=== PATIENT | female | born 1935 | race Caucasian/White ===

== ENCOUNTER 2017-07-19 14:01 | Observation (INO) | payer MEDICARE, OTHER ==
[2017-07-19] MEDS ORDERED: SODIUM CHLORIDE 0.9% 1000ML 1,000 ML IVS ONE (14:29)
[2017-07-19] MEDS ORDERED: DEXTROSE 50% 25 GM/50 ML SYG IV ONE ×2 (15:02→15:03)
--- NOTE | 2017-07-19 15:07 | RAD ---
EXAM DESCRIPTION: Chest,1 View CLINICAL HISTORY: 82 years Female, dizziness COMPARISON: None. IMPRESSION: The heart is enlarged, with borderline central pulmonary vascular congestion. Mild perihilar interstitial prominence. This may reflect atelectasis, scarring/fibrosis, mild interstitial edema, versus an atypical infectious/inflammatory process. There is no confluent airspace consolidation, large pleural effusion, or pneumothorax. No acute osseous abnormality. Electronically signed by: Jason Ordoñez MD 07/19/2017 3:06 PM CDT
--- NOTE | 2017-07-19 16:23 | ED.PDOC ---
History of Present Illness - General Chief Complaint: Neuro Symptoms/Deficits Stated Complaint: cardiac Time Seen by Provider: 07/19/17 14:28 Source: patient, family Exam Limitations: no limitations - History of Present Illness Initial Comments: the patient is an 82-year-old female presenting to the emergency room with her daughter secondary to increased fatigue and drowsiness and generalized weakness today. Daughter reports that also some yesterday the patient was a little less active than normal. No chest pains. No nausea or vomiting. No diarrhea. No real shortness of breath. Daughter reports that she did get a little bit confused and dizzy and mildly diaphoretic earlier today. Of significant note, the patient's glucometer has not been working for the last 3 days and the patient is an insulin-dependent diabetic. She does have mild dementia at baseline. the patient does have depression, anxiety and some mild bladder spasms for which she was started on an antidepressant and a antispasmodic about a month ago. Timing/Duration: unsure Severity: moderate Improving Factors: nothing Worsening Factors: nothing Associated Symptoms: denies symptoms Allergies/Adverse Reactions: Allergies Penicillins Allergy (Verified 07/19/17 14:47) Other Causes itching Sulfa Antibiotics Allergy (Verified 07/19/17 14:47) Other Causes itching Review of Systems - Review of Systems Constitutional: States: diaphoresis, malaise, weakness EENTM: States: no symptoms reported Respiratory: States: no symptoms reported Cardiology: States: no symptoms reported Gastrointestinal/Abdominal: States: nausea Genitourinary: States: no symptoms reported Musculoskeletal: States: no symptoms reported Skin: States: no symptoms reported Neurological: States: other - mild dizziness that is episodic Endocrine: States: excessive sweating All other Systems: No Change from Baseline Past Medical History (General) - Patient Medical History Hx Dementia: Yes Hx Congestive Heart Failure: No Hx Thyroid Disease: Yes Hx Diabetes: Yes - Diabetic retinopathy - Social History Hx Tobacco Use: No Family Medical History - Family History Mother Family History: No Known Living Status: Physical Exam - Physical Exam General Appearance: Alert, Comfortable, No apparent distress Eye Exam: bilateral normal Ears, Nose, Throat: hearing grossly normal, normal ENT inspection, normal pharynx Neck: full range of motion, supple, normal inspection Respiratory: lungs clear, normal breath sounds, no respiratory distress, no accessory muscle use Cardiovascular/Chest: normal peripheral pulses, no edema, other - regular rate Peripheral Pulses: radial,right: 2+, radial,left: 2+, dorsalis pedis,right: 2+, dorsalis pedis,left: 2+ Gastrointestinal/Abdominal: non tender, soft Rectal Exam: deferred Back Exam: normal inspection, no CVA tenderness Extremity: normal range of motion, non-tender, normal inspection, no pedal edema , normal capillary refill Neurologic: news reporter II-XII nml as tested, alert, normal mood/affect - the patient's affect is flat. I'm unsure what hernormal is. She does have some dementia but is able to answer questionsabout how she is feeling quite well. She knows her relatives. She knows sooome of her medical history. She also knows why she is here. Skin Exam: normal color Comments: Vital Signs - 24 hr 07/19/17 07/19/17 14:19 15:11 Temperature 98.2 F Pulse Rate [ 62 60 Right Radial] Respiratory 20 20 Rate Blood Pressure 144/63 169/70 [Right Arm] O2 Sat by Pulse 98 96 Oximetry Progress - Progress Progress: 07/19/17 16:25 the patient's 82-year-old female presenting to the emergency room secondary to hypoglycemia. The patient has received an amp of D50. Even her medications and her limitations with her dementia, the patient will be admitted for further monitoring of her blood sugars over the next 24 hours. A urinalysis on this patient is still pending to help rule out a source of infection. No glucagon has been given to this time. Her last blood sugar was 152. Admit for observation for hypoglycemia in an elderly patient. - Results/Orders Results/Orders: Laboratory Tests 07/19/17 07/19/17 07/19/17 14:25 14:39 14:39 WBC 6.8 RBC 4.01 L Hgb 12.6 Hct 35.9 L MCV 89.5 MCH 31.4 H MCHC 35.2 RDW 13.2 Plt Count 179 MPV 9.5 Absolute Neuts (auto) 5.20 Absolute Lymphs (auto) 0.90 L Absolute Monos (auto) 0.60 Absolute Eos (auto) 0.00 Absolute Basos (auto) 0.00 Neutrophils % 77.0 Lymphocytes % 13.1 L Monocytes % 8.5 Eosinophils % 0.7 L Basophils % 0.7 Sodium 141 Potassium 3.8 Chloride 108 Carbon Dioxide 26 Anion Gap 10.8 L BUN 16 Creatinine 0.71 BUN/Creatinine Ratio 22.5 H POC Glucose 47 L Random Glucose 53 L Serum Osmolality 279.9 Calcium 9.4 Magnesium 1.7 L Total Bilirubin 0.5 AST 21 ALT 16 Alkaline Phosphatase 80 Creatine Kinase 78 CK-MB (CK-2) 3.2 CK-MB (CK-2) % Not Reportable Troponin I 0.02 B-Natriuretic Peptide 129.0 H Serum Total Protein 7.3 Albumin 4.0 Globulin 3.3 Albumin/Globulin Ratio 1.2 07/19/17 07/19/17 15:02 15:59 WBC RBC Hgb Hct MCV MCH MCHC RDW Plt Count MPV Absolute Neuts (auto) Absolute Lymphs (auto) Absolute Monos (auto) Absolute Eos (auto) Absolute Basos (auto) Neutrophils % Lymphocytes % Monocytes % Eosinophils % Basophils % Sodium Potassium Chloride Carbon Dioxide Anion Gap BUN Creatinine BUN/Creatinine Ratio POC Glucose 49 L 152 H D Random Glucose Serum Osmolality Calcium Magnesium Total Bilirubin AST ALT Alkaline Phosphatase Creatine Kinase CK-MB (CK-2) CK-MB (CK-2) % Troponin I B-Natriuretic Peptide Serum Total Protein Albumin Globulin Albumin/Globulin Ratio urinalysis is still pending at this time. Chest x-ray shows mild cardiomegaly those this is a single view. There is also likely chronic interstitial changes present. No definitive pneumonia. No pneumothorax. No pulmonary edema. Departure - Departure Clinical Impression: Hypoglycemia, Hypoglycemic reaction Disposition: Admit Patient Decision To Admit - Decistion To Admit Decision to Admit Reason: Medical Nature Decision to Admit Date: 07/19/17 Decision to Admit Time: 16:27
--- NOTE | 2017-07-19 17:20 | HP ---
SUPERVISING PHYSICIAN: Cristhian Cabrera M.D. CHIEF COMPLAINT: Weakness and lethargy. HISTORY OF PRESENT ILLNESS: This is an 82 year-old female patient who has recently moved to [place] from the [place], [place] area. She lives with her daughter. They had gone out to several stores in town earlier today. She felt very weak. She initially thought it was the heat. After they went back home she went to lie down and she had a very difficult time getting up. She felt like she was "out of it." Her daughter brought her to the Emergency Room. In the Emergency Room, her blood sugars were in the low 40s. She received some D50. A subsequent blood sugar went up but then it again went down into the 40s again and she received some more D50. There was a question of whether her glucometer was working at home or that she just had not been eating well over the last few days or if she had gotten overheated. She was afebrile. Her initial heart rate was 58 to 60 and is now 85. Her blood pressure was 144/63 with a respiratory rate of 20 and O2 sat of 98. WBCs were 6.8 with hemoglobin 12.6, hematocrit 35.9, platelets 179. Sodium 141, potassium 3.8, chloride 108, carbon dioxide 26, BUN 16, creatinine 0.71. Serum osmolality 279.9, calcium 9.4 , magnesium 1.7. BNP was 129. Cardiac enzymes were negative. Liver functions were within normal limits. Urinalysis was basically within normal limits. Chest x-ray showed the heart is enlarged with borderline central pulmonary vascular congestion. I was called for admission. PAST MEDICAL HISTORY: 1. Dementia. 2. Hypertension. 3. Diabetes mellitus type 2. 4. Diabetic retinopathy. 5. Hypothyroidism. 6. Hypertension. PAST SURGICAL HISTORY: OUTPATIENT MEDICATIONS: Per the EMR and awaiting verification. ALLERGIES: PENICILLIN AND SULFA. SOCIAL HISTORY: She recently moved to [place] from the [place], [place] area. She lives with her daughter. She denies any tobacco use. She rarely has an alcoholic beverage. There is no history of any illegal substance abuse. REVIEW OF SYSTEMS: Positive for weakness. Negative for fever or weight changes. HEENT: Negative for sinus symptoms, ear pain, vision changes or sore throat. RESPIRATORY: Negative for coughing, wheezing or shortness of breath. CARDIOLOGY: Negative for chest pain, palpitations or tachycardia. GASTROINTESTINAL: Positive for mild nausea. Negative for abdominal pain, vomiting, diarrhea or constipation. GENITOURINARY: Negative for hematuria, dysuria or polyuria. SKIN: Negative for lesions or rashes. MUSCULOSKELETAL: Negative for back pain, arthralgias or myalgias. NEUROLOGIC: Positive for dizziness and weakness. Negative for headaches or seizures. PHYSICAL EXAMINATION: VITAL SIGNS: She is afebrile, heart rate 59, blood pressure 178/69, respiratory rate 20, O2 sat 98%. GENERAL: This is an 82 year-old female patient who is lying in her hospital bed. She is in no acute distress. HEENT: Normocephalic and atraumatic. Pupils are equal and reactive. Oropharynx is clear. NECK: Supple without mass. RESPIRATORY: Essentially clear to auscultation bilaterally. CHEST: There is equal rise and fall of the chest with inspiration and expiration. CARDIOVASCULAR: Regular rate and rhythm. GASTROINTESTINAL: Abdomen is soft, nondistended, non-tender. Bowel sounds are positive. EXTREMITIES: No cyanosis, clubbing or edema. NEUROLOGIC: She is awake, alert and oriented times three. LABORATORY: Labs and films are as per the history of present illness. ASSESSMENT: 1. Hypoglycemia. 2. Diabetes mellitus type 2. 3. Hypertension. 4. Diabetic retinopathy. 5. Hypothyroidism. PLAN: We will place the patient in Observation. We will monitor her blood sugars closely. I will restart her home medications except for her diabetic medications. Will do several blood sugar checks during the night to make sure her blood sugars do not drop. Tomorrow we will reintroduce her diabetic medications and evaluate if we need to make adjustments on those. I will schedule some routine lab for in the morning. She will need to get a new meter or have her meter tested for accuracy. We will need to make sure she has a primary care physician for followup. We will continue to monitor her closely and follow as needed. Dr. Cabrera is the collaborating physician available for consultation. #[id number] [facility]liana
[2017-07-19] MEDS ORDERED: SODIUM CHLORIDE 0.9% (FLUSH) 10 ML SYG IV PRN (17:39)
[2017-07-19] MEDS ORDERED: ACETAMINOPHEN 325 MG TAB PO PRN (17:41)
[2017-07-19] MEDS ORDERED: GLUCAGON INJ 1 MG VIAL SUBCU PRN (17:42)
[2017-07-19] MEDS ORDERED: DEXTROSE 50% 25 GM/50 ML SYG IV PRN (17:42)
[2017-07-19] MEDS ORDERED: PANTOPRAZOLE SODIUM IV 40 MG VIAL IV SCH (18:00)
[2017-07-19] MEDS ORDERED: IV SET AND CAP CHANGE INJ INJ SCH (18:00)
[2017-07-19] MEDS ORDERED: traZODone HCL 100 MG TAB PO ONE (21:01)
[2017-07-19] MEDS: SODIUM CHLORIDE 0.9% (FLUSH) 10 ML SYG IV SCH (21:04)
[2017-07-19] MEDS: traZODone HCL 50 MG TAB PO SCH (21:05)
[2017-07-19] MEDS: INSULIN LISPRO 100 UNITS/ML PEN SUBCU SCH (21:09)
[2017-07-20] MEDS: INSULIN LISPRO 100 UNITS/ML PEN SUBCU SCH ×4 (08:08→20:52)
[2017-07-20] MEDS ORDERED: NON-FORMULARY MEDICATION 1 EA MIS (Levothyroxine Sodium [Synthroid] 125 MCG) PO SCH (09:00)
[2017-07-20] MEDS ORDERED: LOSARTAN POTASSIUM 25 MG TAB PO SCH (09:00)
[2017-07-20] MEDS: LEVOTHYROXINE SODIUM 0.025 MG TAB PO SCH (09:16)
[2017-07-20] MEDS: TOLTERODINE TARTRATE ER 4 MG CAP PO SCH (09:16)
[2017-07-20] MEDS: LEVOTHYROXINE SODIUM 0.1 MG TAB PO SCH (09:16)
[2017-07-20] MEDS: LATANOPROST 0.005% OPTH SOL 2.5 ML BTTL BOTH_EYES SCH (09:16)
[2017-07-20] MEDS: SODIUM CHLORIDE 0.9% (FLUSH) 10 ML SYG IV SCH ×2 (09:17→20:51)
--- NOTE | 2017-07-20 10:42 | PN ---
SUPERVISING PHYSICIAN: Cristhian Cabrera MD DATE: 07/20/17 SUBJECTIVE: The patient is sitting up in a chair in her room. She continues complaints of weakness and fatigue, but feels better than on admission yesterday. The nurses reported her heart rate was in the 40s and 50s and she denies knowing about this in the past. OBJECTIVE: VITAL SIGNS: Afebrile. Heart rate has dropped as low as 48. It is now 64. Earlier, it was 56. Blood pressure 132/79. Respiratory rate 16. O2 saturation 91% on room air. RESPIRATORY: Essentially clear to auscultation bilaterally. CARDIAC: Bradycardic to regular rate and regular rhythm. GASTROINTESTINAL: Abdomen is soft, nondistended, nontender. Bowel sounds are positive. EXTREMITIES: No cyanosis, clubbing or edema. NEUROLOGIC: Awake, alert and oriented times three. LABORATORY: WBCs 5.3, hemoglobin 12.2, hematocrit 35.6. Sodium 139, potassium 3.7, chloride 107, carbon dioxide 25, BUN 15, creatinine 0.77. Blood sugars have run between 139 and 179. Calcium 8.8, magnesium still pending. All other labs and films have been reviewed via the EMR. ASSESSMENT: 1. Hypoglycemic event with blood sugars in the 40s. 2. Weakness and fatigue with reported blood sugars in the 40s in the Emergency Room and later heart rate reported in the 40s and 50s. 2. Diabetes mellitus, type 2, on 70/30 insulin as well as metformin. 3. Bradycardia, may have contributed to the weakness and fatigue. 4. Hypertension. 5. Diabetic retinopathy. 6. Hypothyroidism. PLAN: We will continue to monitor the patient closely. She may need to be changed to a full admission, but we will reevaluate.. At this point, I believe that a lot of her fatigue and low blood sugars were due to her 70/30. She takes quite a large dose. I have discontinued that and started her on Levemir 10 units at night. I explained to the patient that she may be better controlled with Lantus. She is having a difficult time acclimating to a new humidity and heat. I have restarted her metformin. Will also monitor her heart rate overnight. She only takes an ARB for her blood pressure. Her fatigue and lethargy may be due to bradycardic events and it may be beneficial for her to be discharged on a Holter monitor until she can followup with her primary care physician. I have held on labs for in the morning as those are fairly stable. We will closely monitor her heart rate over the next 24 hours as well as her blood sugars. We will continue to monitor the patient closely and follow as needed. Dr. Cabrera is the collaborating physician and available for consultation. #[id number] MTDD
[2017-07-20] MEDS: PANTOPRAZOLE SODIUM TAB 40 MG PO SCH (16:47)
[2017-07-20] MEDS ORDERED: MAGNESIUM SULFATE PREMIX 2GM 2 GM in PREMIX BAG 1 BAG IVPB ONE (17:46)
[2017-07-20] MEDS ORDERED: MAGNESIUM SULFATE PREMIX 2GM 50 ML IVPB ONE (17:53)
[2017-07-20] MEDS: LOSARTAN POTASSIUM 25 MG TAB PO SCH (20:50)
[2017-07-20] MEDS: traZODone HCL 50 MG TAB PO SCH (20:51)
[2017-07-20] MEDS ORDERED: INSULIN DETEMIR 100 UNITS/ML PEN SUBCU SCH (21:00)
[2017-07-20] MEDS ORDERED: ATORVASTATIN 20 MG TAB PO SCH (21:00)
[2017-07-20] MEDS ORDERED: cloNIDine HCL 0.1 MG TAB PO ONE (23:27)
[2017-07-21] MEDS: PANTOPRAZOLE SODIUM TAB 40 MG PO SCH (06:21)
[2017-07-21] MEDS: LEVOTHYROXINE SODIUM 0.025 MG TAB PO SCH (06:21)
[2017-07-21] MEDS: LEVOTHYROXINE SODIUM 0.1 MG TAB PO SCH (06:21)
[2017-07-21] MEDS ORDERED: HALOPERIDOL LACTATE INJ 5 MG/ML VIAL IM ONE (06:41)
[2017-07-21] MEDS: INSULIN LISPRO 100 UNITS/ML PEN SUBCU SCH ×3 (07:25→16:20)
[2017-07-21] MEDS ORDERED: metFORMIN XR 500 MG TAB.ER.24 PO SCH (07:30)
[2017-07-21] MEDS: TOLTERODINE TARTRATE ER 4 MG CAP PO SCH (09:16)
[2017-07-21] MEDS: LOSARTAN POTASSIUM 25 MG TAB PO SCH (09:16)
[2017-07-21] MEDS: LATANOPROST 0.005% OPTH SOL 2.5 ML BTTL BOTH_EYES SCH (09:17)
[2017-07-21] MEDS: SODIUM CHLORIDE 0.9% (FLUSH) 10 ML SYG IV SCH (09:18)
[2017-07-21 10:06] VITALS: O2SAT 97
[2017-07-21] MEDS ORDERED: INSULIN DETEMIR 100 UNITS/ML PEN SUBCU ONE (10:07)
[2017-07-21] MEDS ORDERED: CITALOPRAM HBR 20 MG TAB PO SCH (11:00)
[2017-07-21] MEDS ORDERED: NYSTATIN POWDER 15GM BTTL TOP PRN (13:03)
[2017-07-21 14:48] VITALS: BP 124/70; TEMP 97.5
[2017-07-22] MEDS ORDERED: MAGNESIUM OXIDE 400 MG TAB PO SCH (09:00)
--- NOTE | 2017-07-22 10:06 | DS ---
SUPERVISING PHYSICIAN: Cristhian Cabrera MD DISCHARGE DIAGNOSES: 1. Hypoglycemia with acute hypoglycemic event with blood sugars in the 40s secondary to poor medical compliance with diabetic medication regimen. 2. Weakness and fatigue likely secondary to poorly controlled blood sugars with questionable bradycardiac even with heart rate in the reported to be in the 40s and 50s.requiring further outpatient assessment. 3. Diabetes mellitus, type 2, on 70/30 insulin as well as metformin with poorly controlled blood sugars with decreased mental capacity to manage blood sugars. 4. Bradycardia, possibly contributing to weakness and fatigue. 5. Hypertension. 6. Diabetic retinopathy. 7. Hypothyroidism. REASON FOR HOSPITALIZATION: Ms. Florian is an 82 year-old female patient who recently moved from [place], [place] to [place]. She currently lives with her daughter and had gone to several stores in town on the date of admission, 07/19/17. She noted she was feeling very weak. She initially thought it was the heat, went back home and laid down but then had a very difficult time getting up. She felt like she was "out of it." Her daughter at that time brought her to the Emergency Room for evaluation. In the Emergency Room, her blood sugars showed she was hyperglycemic with a blood sugar in the 40s. At that time she received some D50 with improvement of her blood sugar initially with rebound back into the 40 and she received an additional amp of D50. The question was whether her glucometer was at home was working or she just had not been eating well over the last several days and continued to take her normal insulin regimen of 70/30. Chest x-ray showed she had enlarged heart with borderline central pulmonary vascular congestion. Labs were completed and the patient was admitted for hyperglycemia and further treatment and evaluation. LABORATORY: White count on admission was 6,800, prior to discharge on 07/20/ was 5,300. Hemoglobin and hematocrit were stable at 12.2 and 35.6 respectively. Platelet count 157,000. Differential showed to be without a left shift. Chemistries on admission showed electrolytes within normal limits with potassium 3.8, BUN 16, creatinine 0.71. Initially blood sugar in the Emergency Room was 47. After an amp of D50 it went up to 53 and back down to 49 , then an additional amp of D5 was given and it went back up to 152. Since admission it ranged between 142 and 233. Magnesium was slightly low at 1.7. Liver functions all showed to be within normal limits. She just had a slightly elevated BNP of 129. Cardiac enzymes showed to be within normal limits. Urinalysis showed 100 glucose, otherwise was within normal limits. RADIOLOGY: She had a chest x-ray in the Emergency Department prior to admission and per radiology interpretation there was noted the heart was enlarged with borderline essential pulmonary vascular congestion with mild pulmonary interstitial prominence, may reflect atelectasis scarring versus atypical infectious/inflammatory response, although there is no confluent airspace consolidations, no large pleural effusion or pneumothorax. HOSPITAL COURSE: Ms. Florian was admitted on 07/19 as noted above for hyperglycemia and question of bradycardia. She was started on sliding scale while in the hospital and Levemir and showing good response to the current regiment. She did have an episode of confusion late in the afternoon on the which was felt to be a sundowner's episode with the patient's son reported that she does that frequently at home as she has been diagnosed recently with questionable dementia. The patient was given some Ativan, Trazodone and Haldol. On the morning of discharge, the patient once awake was alert and oriented and was reporting to have felt better than when she was admitted. Her blood sugars have been well-controlled. She had no repeat hyperglycemic event. Her heart rate had been within normal limits without any noted bradycardiac events and it was felt that the patient was clinically stable enough to continue with outpatient management. PLAN: Ms. Florian was discharged on 07/21/17 with instructions to followup with her primary care physician, Dr. Narvaez in [place] the following week. After discussing with the patient's family, the daughter felt like the patient over the last several weeks has been showing some signs of depression, not wanting to sleep and sometimes sleeping all day and not showing an interest in normal activities that she normally finds enjoyment from. She has been started on low-dose Celexa and will do close monitoring and followup. Given that she is unable to follow a good regimen on controlling her blood sugars, I have changed her insulin regimen from 70/30 to Lantus 25 units in the morning along with continued metformin. I have encouraged the family to get blood sugars at least twice or three times a day to take to followup appointment to further trend out blood sugars and management of her insulin regimen. She was to have Home Health which will initially occur on Monday with [facility] for assistance at home. DISCHARGE DIET: Diabetic diet with encouragement of frequent snacks especially at night to prevent hypoglycemic events in the morning. ACTIVITIES: Increase activities as tolerated. NEW MEDICATIONS AT DISCHARGE: 1. Celexa 10 mg daily, #30, no refills. 2. Lantus 25 units subcu daily in the morning one pen, no refills. All other medications prior to hospitalization were continued with the exception of the 70/30 which has been stopped. CONDITION ON DISCHARGE: Stable and improved. #[id number] [facility]
== END 2017-07-21 18:15 | disposition home health service (06) ==
LOC: ER 14:01 → MS 17:19
PROVIDERS: ADMIT Nurse Practitioner Acute Care; ATTEND Nurse Practitioner Family
DX: E11.649 Type 2 diabetes mellitus with hypoglycemia without coma (principal); R53.1 Weakness; R53.83 Other fatigue; R00.1 Bradycardia, unspecified; E83.42 Hypomagnesemia; I10 Essential (primary) hypertension; E11.319 Type 2 diabetes mellitus with unspecified diabetic retinopathy without macular edema; E03.9 Hypothyroidism, unspecified; F03.90 Unspecified dementia, unspecified severity, without behavioral disturbance, psychotic disturbance, mood disturbance, and anxiety; Z79.84 Long term (current) use of oral hypoglycemic drugs; Z79.899 Other long term (current) drug therapy; Z88.0 Allergy status to penicillin; Z88.2 Allergy status to sulfonamides
CPT/HCPCS: 96372 ×2; 96375 ×3; J7799; J1630; J2060; J7030; J3475; J1815 ×2; 82553; 80053 ×2; 82948 ×13; 83036; 36415 ×2; 81001; 85025 ×2; 82550; 83735 ×2; 84484; 83880; 36416 ×11; 71045; 94760 ×10; 93225; 99285; 93005; G0378; 96374

== ENCOUNTER → 2017-12-28 | Outpatient (CLI) | payer MEDICARE, OTHER | LOC: BFHH 15:54 | PROVIDERS: ATTEND Family Medicine | DX: E03.9 Hypothyroidism, unspecified (principal); E11.69 Type 2 diabetes mellitus with other specified complication; I10 Essential (primary) hypertension; E78.5 Hyperlipidemia, unspecified ==

== ENCOUNTER → 2018-04-24 | Outpatient (CLI) | payer MEDICARE, OTHER | LOC: BFHH 12:05 | PROVIDERS: ATTEND Family Medicine | DX: E11.9 Type 2 diabetes mellitus without complications (principal); I10 Essential (primary) hypertension; E03.9 Hypothyroidism, unspecified ==

== ENCOUNTER → 2018-05-01 | Outpatient (CLI) | payer MEDICARE, OTHER | LOC: BFHH 14:32 | PROVIDERS: ATTEND Family Medicine | DX: D53.9 Nutritional anemia, unspecified (principal); E11.69 Type 2 diabetes mellitus with other specified complication; E03.9 Hypothyroidism, unspecified ==